=== PATIENT | female | born 1980 | race Two or more races ===

== ENCOUNTER 2017-06-26 09:22 | Emergency (ER) | payer OTHER ==
[~2017-06-26] VITALS: Ht 157.5 cm; Wt 86.2 kg
[2017-06-26] MEDS ORDERED: ROBAXIN-750750 MG PO (09:31)
[2017-06-26] MEDS ORDERED: IBUPROFEN600 MG ORAL (09:31)
[2017-06-26 09:41] VITALS: BP 145/114
[2017-06-26] MEDS ORDERED: Ketorolac 30mg Inj IM ONE (09:45)
[2017-06-26] MEDS ORDERED: Methocarbamol 750mg tab ORAL ONE (09:45)
[2017-06-26 10:11] VITALS: BP 145/114
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
== END 2017-06-26 10:20 | disposition home or self-care (01) ==
LOC: EMR 09:30
DX: M54.5 Low back pain (principal); J45.909 Unspecified asthma, uncomplicated
CPT/HCPCS: 96372; 99284; J1885